=== PATIENT | female | born 2000 | race Hispanic/Latino ===

== ENCOUNTER 2024-11-13 09:52 | Outpatient (CLI) | payer BC ==
[2024-11-13 11:00] LABS: #Basophils 0.05 10x3/uL (0.0-0.2); #Eosinophils 0.46 10x3/uL (0.0-0.7); #Monocytes 0.43 10x3/uL (0.11-0.59); #Neutrophils 4.74 10x3/uL (1.40-6.50); %Basophils 0.6 % (0.0-1.0); %Eosinophils 5.7 % (0.0-10.0); %Lymphocytes 28.8 % (21.0-51.0); %Monocytes 5.4 % (0.0-10.0); %Neutrophils 59.3 % (42.0-75.0); Hematocrit 41.5 % (36.0-47.0); Hemoglobin 13.7 g/dL (12.0-16.0); Mean Corpuscular Hemoglobin 29.1 pg (27.0-31.0); Mean Corpuscular Volume 88.1 fL (78.0-98.0); Platelet Count 323 10x3/uL (130-400); Red Blood Cell (RBC) Count 4.71 mill/uL (4.20-5.40); White Blood Cell (WBC) Count 8.01 10x3/uL (4.8-10.8)
[2024-11-13 11:17] LABS: BHCG - Serum Negative (NEGATIVE); Pregs Control Background? CLEAR/WHITE (CLR/WHITE); Pregs Control Bar Appear? YES (CONTROL BAR)
[2024-11-13 11:21] LABS: ALT (SGPT) 40 U/L (Less than 34); AST (SGOT) 35 U/L (11-34); Albumin 4.2 g/dL (3.1-4.5); Alkaline Phosphatase 90 U/L (40-110); Anion Gap 14 mmol/L (10-20); BUN (Urea Nitrogen) 10 mg/dL (7.0-18.7); Bilirubin, Total 0.5 mg/dL (0.3-1.2); Calc. Creatinine Clearance 0 mL/min (70-130); Calcium 9.0 mg/dL (7.8-10.44); Carbon Dioxide 23 mmol/L (22-29); Chloride 108 mmol/L (98-107); Globulin 3.4 g/dL (2.4-3.5); Glucose 116 mg/dL (70-105); Potassium 3.6 mmol/L (3.5-5.1); Sodium 141 mmol/L (136-145)
== END 2024-11-13 09:53 | disposition home or self-care (01) ==
LOC: LABBT 09:52
PROVIDERS: ATTEND Surgery
DX: Z01.818 Encounter for other preprocedural examination (principal); E66.01 Morbid (severe) obesity due to excess calories
CPT/HCPCS: 80053; 83036; 84703; 85025; 93005; 93010

== ENCOUNTER 2024-11-14 05:57 | Inpatient (IN) | payer BC ==
[2024-11-13 10:13] VITALS: BMI 42.1
[2024-11-14] MEDS ORDERED: Acetaminophen 500 MG TAB ONE (06:16)
[2024-11-14] MEDS ORDERED: Ketorolac Tromethamine 30 MG (1 mL) VIAL ONE (06:16)
[2024-11-14] MEDS ORDERED: CEFAZOLIN 2 GM VIAL ONE (06:17)
[2024-11-14] MEDS ORDERED: Heparin 5,000 UNITS/ML VIAL ONE (06:18)
[2024-11-14] MEDS ORDERED: fentaNYL PF 100 MCG/2 ML SYRINGE ONE ×3 (06:53→09:21)
[2024-11-14] MEDS ORDERED: PROPOFOL 0 ML ONE (06:53)
[2024-11-14] MEDS ORDERED: Bupivacaine 0.25% HCL 30 ML VIAL ONE (07:01)
[2024-11-14] MEDS ORDERED: Lidocaine 1% PF 5 ML VIAL ONE (07:26)
[2024-11-14] MEDS ORDERED: Rocuronium Bromide 10 MG/ML (10ML VIAL) ONE (07:26)
[2024-11-14] MEDS ORDERED: Ondansetron PF 4 MG/2 ML Vial ONE ×2 (07:26→09:09)
[2024-11-14] MEDS ORDERED: SUGAMMADEX SODIUM 200 MG/2 ML VIAL ONE (08:21)
[2024-11-14] MEDS ORDERED: PROPOFOL 20 ML ONE (08:28)
[2024-11-14] MEDS ORDERED: HYDROmorphone 0.5 MG/0.5 ML SYRINGE ONE ×2 (08:42→09:21)
[2024-11-14] MEDS ORDERED: Dextrose 50% Abboject 50 ML SYRINGE SLOW IVP PRN (09:10)
[2024-11-14] MEDS ORDERED: hydrALAZINE 20 MG/ML VIAL SLOW IVP PRN (09:10)
[2024-11-14] MEDS ORDERED: Glucagon 1 MG/ML KIT IM PRN (09:10)
[2024-11-14] MEDS ORDERED: diphenhydrAMINE 50 MG/ML VIAL IVP PRN (09:10)
[2024-11-14] MEDS: oxyCODONE 5 MG TAB PO PRN (10:42)
[2024-11-14] MEDS: D5 1/2 NS w/20 mEq KCL 1,000 ML IV SCH (10:43)
[2024-11-14] MEDS: Ondansetron PF 4 MG/2 ML Vial IVP PRN (18:08)
[2024-11-14] MEDS: Ketorolac Tromethamine 30 MG (1 mL) VIAL IVP PRN (19:08)
[2024-11-15 05:33] LABS: #Basophils 0.03 10x3/uL (0.0-0.2); #Eosinophils Less than 0.03 10x3/uL (0.0-0.7); #Monocytes 0.91 10x3/uL (0.11-0.59); #Neutrophils 10.30 10x3/uL (1.40-6.50); %Basophils 0.2 % (0.0-1.0); %Eosinophils 0.1 % (0.0-10.0); %Lymphocytes 17.5 % (21.0-51.0); %Monocytes 6.6 % (0.0-10.0); %Neutrophils 75.3 % (42.0-75.0); Hematocrit 37.9 % (36.0-47.0); Hemoglobin 12.8 g/dL (12.0-16.0); Mean Corpuscular Hemoglobin 29.2 pg (27.0-31.0); Mean Corpuscular Volume 86.5 fL (78.0-98.0); Platelet Count 303 10x3/uL (130-400); Red Blood Cell (RBC) Count 4.38 mill/uL (4.20-5.40); White Blood Cell (WBC) Count 13.70 10x3/uL (4.8-10.8)
[2024-11-15 06:05] LABS: Anion Gap 11 mmol/L (10-20); BUN (Urea Nitrogen) 5 mg/dL (7.0-18.7); Calc. Creatinine Clearance 326 mL/min (70-130); Calcium 8.7 mg/dL (7.8-10.44); Carbon Dioxide 21 mmol/L (22-29); Chloride 110 mmol/L (98-107); Glucose 131 mg/dL (70-105); Potassium 3.5 mmol/L (3.5-5.1); Sodium 138 mmol/L (136-145)
[2024-11-15 08:29] VITALS: BP 125/83; TEMP 98.1
[2024-11-15] MEDS: Enoxaparin 40 MG (0.4 mL) SYRINGE SC SCH (09:24)
[2024-11-15] MEDS: Pantoprazole 40 MG VIAL IVP SCH (09:25)
== END 2024-11-15 12:00 | disposition home or self-care (01) | DRG 621 ==
LOC: SDC 05:57 → SURG B 09:10
PROVIDERS: ADMIT Surgery; ATTEND Surgery
PROC: 0DB64Z3 Excision of Stomach, Percutaneous Endoscopic Approach, Vertical (ICD-10-PCS; principal; 2024-11-14)
PROC: 8E0W4CZ Robotic Assisted Procedure of Trunk Region, Percutaneous Endoscopic Approach (ICD-10-PCS; 2024-11-14)
DX: E66.01 Morbid (severe) obesity due to excess calories (principal); Z68.41 Body mass index [BMI] 40.0-44.9, adult
CPT/HCPCS: 36415; 80048; 85025; 88307; 88342; J0169; J0665; J1100; J1171; J1642; J1644; J1650; J1885; J2270; J2470; J2550; J2704; J3480; S2900